=== PATIENT | male | born 1985 | race Two or more races ===

== ENCOUNTER 2021-03-20 21:58 | Emergency (ER) | payer BC ==
[2021-03-20 22:08] VITALS: BP 138/92; PULSE 109; RESP 22; TEMP 97.9
--- NOTE | 2021-03-20 22:30 | ED ---
General Adult HPI - General Chief complaint: Recheck/Abnormal Lab/Rx Stated complaint: covid test Time Seen by Provider: 03/20/21 22:10 Source: patient, family Mode of arrival: ambulatory Limitations: no limitations - History of Present Illness Initial comments: Dictation was produced using [employer] dictation software. please excuse any grammatical, word or spelling errors. Chief Complaint: 35 year-old no presents to the emergency department for coronavirus test History of Present Illness: 35-year-old male presents to the emergency department for coronavirus test in order to pass into [facility]. Patient and family members are going to visit family in [place]. Patient has no medical complaints. The ROS documented in this emergency department record has been reviewed and confirmed by me. Those systems with pertinent positive or negative responses have been documented in the HPI. All other systems are other negative and/or noncontributory. PHYSICAL EXAM: General Impression: Alert and oriented x3, not in acute distress HEENT: Normocephalic atraumatic, extra-ocular movements intact, pupils equal and reactive to light bilaterally, mucous membranes moist. Chest: Able to complete full sentences, no retractions, no tachypnea Musculoskeletal: Pulses present and equal in all extremities, no peripheral edema Motor: no focal deficits noted Neurological: CN II-XII grossly intact, no focal motor or sensory deficits noted Skin: Intact with no visualized rashes Psych: Normal affect and mood ED course: 35-year-old male presents to the emergency department for coronavirus tests in order to pass to use [place]. Vital signs upon arrival are within acceptable limits. Coronavirus negative. Patient discharged - Related Data Allergies Allergy/AdvReac Type Severity Reaction Status Date / Time No Known Allergies Allergy Verified 03/20/21 22:08 Review of Systems ROS Statement: Those systems with pertinent positive or pertinent negative responses have been documented in the HPI. ROS Other: All systems not noted in ROS Statement are negative. Past Medical History Past Medical History: No Reported History History of Any Multi-Drug Resistant Organisms: None Reported Past Surgical History: Orthopedic Surgery Past Psychological History: No Psychological Hx Reported Smoking Status: Former smoker Past Alcohol Use History: None Reported Past Drug Use History: None Reported General Exam Limitations: no limitations Course Vital Signs 03/20/21 22:06 Temperature 97.9 F Pulse Rate 109 H Respiratory 22 Rate Blood Pressure 138/92 O2 Sat by Pulse 97 Oximetry Medical Decision Making - Lab Data Lab Results 03/20/21 Range/Units 22:18 Coronavirus (PCR) Not Detected (Not Detectd) Disposition Clinical Impression: Lab test negative for COVID-19 virus Disposition: HOME SELF-CARE Condition: Good Is patient prescribed a controlled substance at d/c from ED?: No Referrals: None,Stated [Primary Care Provider] - 1-2 days
== END 2021-03-20 23:44 | disposition home or self-care (01) ==
LOC: EC 21:58
DX: Z20.822 Contact with and (suspected) exposure to COVID-19 (principal); Z87.891 Personal history of nicotine dependence
CPT/HCPCS: 87635; 99283